=== PATIENT | female | born 1935 | race African-American/Black ===

== ENCOUNTER 2022-06-24 17:30 | Inpatient (IN) | payer MEDICARE, MEDICAID ==
[2022-06-24] MEDS ORDERED: Senokot S 8.6-50 MG TAB PO PRN (17:43)
[2022-06-24] MEDS ORDERED: Ondansetron PF 4 MG/2 ML Vial IVP PRN (17:43)
[2022-06-24] MEDS ORDERED: Guaifenesin DM 100-10/5 ML UDCUP PO PRN (17:43)
[2022-06-24] MEDS ORDERED: HYDROcodone/Acetaminophen 5/325 mg Tablet PO PRN (17:43)
[2022-06-24] MEDS ORDERED: Acetaminophen 325 MG TAB PO PRN (17:43)
[2022-06-24 17:55] VITALS: BMI 27.4
[2022-06-24] MEDS ORDERED: ALPRAZolam 0.25 MG TAB PO PRN (17:58)
[2022-06-24] MEDS ORDERED: hydrALAZINE 20 MG/ML VIAL SLOW IVP PRN (17:59)
[2022-06-24] MEDS: methylPREDNISolone Sod Succ 40 MG VIAL IVP SCH ×2 (18:26→23:45)
[2022-06-24] MEDS ORDERED: Nicotine 21 MG PATCH TD SCH (18:30)
[2022-06-24] MEDS: ALPRAZolam 0.5 MG TAB PO SCH (20:18)
[2022-06-24] MEDS: guaiFENesin ER 600 MG TAB PO SCH (20:18)
[2022-06-24] MEDS: Doxycycline 100 MG CAP PO SCH (20:18)
[2022-06-25 04:31] LABS: #Monocytes 0.1 10x3/uL (0.0-1.1); #Neutrophils 4.6 10x3/uL (1.5-8.4); %Lymphocytes 11.1 % (18.0-47.0); %Monocytes 1.9 % (0.0-10.0); %Neutrophils 86.6 % (40.0-75.0); Hemoglobin 13.1 g/dL (12.0-15.5); Mean Corpuscular Hemoglobin 27.3 pg (27.0-33.0); Mean Corpuscular Volume 85.2 fl (81.6-98.3); Mean Platelet Volume 11.2 fl (7.4-10.4); Platelet Count 236 10x3/uL (150-450); RBC Distribution Width 14.5 % (11.5-14.5); White Blood Cell (WBC) Count 5.3 10x3/uL (3.5-10.5)
[2022-06-25 04:40] LABS: Anion Gap 14 mmol/L (10-20); BUN (Urea Nitrogen) 17 mg/dL (9.8-20.1); Calc. Creatinine Clearance 60 mL/min (70-130); Calcium 9.4 mg/dL (7.8-10.44); Carbon Dioxide 28 mmol/L (23-31); Chloride 101 mmol/L (98-107); Estimated GFR 79; Glucose 129 mg/dL (83-110); Potassium 4.6 mmol/L (3.5-5.1); Sodium 138 mmol/L (136-145)
[2022-06-25] MEDS: methylPREDNISolone Sod Succ 40 MG VIAL IVP SCH ×3 (06:15→18:30)
[2022-06-25] MEDS: Enoxaparin Sodium 40 MG/0.4 ML SYRINGE SC SCH (09:40)
[2022-06-25] MEDS: Famotidine 20 MG TAB PO SCH (09:40)
[2022-06-25] MEDS: Doxycycline 100 MG CAP PO SCH ×2 (09:40→21:50)
[2022-06-25] MEDS: Nicotine 21 MG PATCH TD SCH (09:41)
[2022-06-25] MEDS: guaiFENesin ER 600 MG TAB PO SCH ×2 (09:50→21:50)
[2022-06-25] MEDS ORDERED: cefTRIAXone\\ROCEPHIN 1 GM in Sodium Chloride 0.9% 100 ML IVPB SCH (13:00)
[2022-06-25] MEDS ORDERED: Benzonatate 100 MG CAP PO PRN (15:49)
[2022-06-25] MEDS ORDERED: Atorvastatin Calcium 20 MG TAB PO SCH (21:00)
[2022-06-25] MEDS: ALPRAZolam 0.5 MG TAB PO SCH (21:50)
[2022-06-26] MEDS: methylPREDNISolone Sod Succ 40 MG VIAL IVP SCH ×3 (00:55→12:30)
[2022-06-26] MEDS ORDERED: Losartan Potassium 50 MG TAB PO SCH (09:00)
[2022-06-26] MEDS: Nicotine 21 MG PATCH TD SCH (09:52)
[2022-06-26] MEDS: Enoxaparin Sodium 40 MG/0.4 ML SYRINGE SC SCH (09:52)
[2022-06-26] MEDS: guaiFENesin ER 600 MG TAB PO SCH (09:52)
[2022-06-26] MEDS: Doxycycline 100 MG CAP PO SCH (09:52)
[2022-06-26] MEDS: Famotidine 20 MG TAB PO SCH (09:52)
[2022-06-26 17:08] VITALS: BP 189/79; TEMP 97.5
== END 2022-06-26 16:40 | disposition left against medical advice (07) | DRG 193 ==
LOC: CSHTELE 17:30
PROVIDERS: ADMIT Family Medicine; ATTEND Internal Medicine Geriatric Medicine
DX: J18.9 Pneumonia, unspecified organism (principal); J96.21 Acute and chronic respiratory failure with hypoxia; J44.0 Chronic obstructive pulmonary disease with (acute) lower respiratory infection; J44.1 Chronic obstructive pulmonary disease with (acute) exacerbation; I10 Essential (primary) hypertension; E78.5 Hyperlipidemia, unspecified; K21.9 Gastro-esophageal reflux disease without esophagitis; Z66 Do not resuscitate; F17.210 Nicotine dependence, cigarettes, uncomplicated; Z79.899 Other long term (current) drug therapy; Z99.81 Dependence on supplemental oxygen; Z90.49 Acquired absence of other specified parts of digestive tract
CPT/HCPCS: 36415; 80048; 83880; 84145; 85025; 85652; 86140; 94640; 94760; J0360; J1650; J2920; J7620